=== PATIENT | male | born 1960 | race Caucasian/White ===

== ENCOUNTER 2020-06-15 18:16 | Emergency (ER) | payer BC ==
--- NOTE | 2020-06-15 18:36 | ED.PDOC ---
History of Present Illness - General Chief Complaint: Respiratory Problem Stated Complaint: SOB, cough, headache Time Seen by Provider: 06/15/20 18:17 Source: patient, RN notes reviewed, Vital Signs reviewed - History of Present Illness Comments: pleasant 60 yo male with a pmh of DM comes in with the c/c of shortness of breath. Started with a cough 5 days ago, thought it was allergies. then developed loss of taste and smell, body aches, headache and shortness of breath. Went to clinic today was tested positive for COVID and his saturations were 93% so sent to ER for further evaluation. Denies chest pain. no n/v. no back pain. Timing/Duration: week Cough Quality/Degree: moderate, dry cough Improving Factors: rest Worsening Factors: movement Associated Symptoms: shortness of breath Allergies/Adverse Reactions: Allergies NO KNOWN ALLERGY Allergy (Verified 06/15/20 18:32) Home Medications: Ambulatory Orders Amlodipine Besylate 5 mg PO DAILY 06/15/20 Lisinopril 40 mg PO DAILY 06/15/20 Metformin HCl [Glumetza] 1,000 mg PO BID 06/15/20 Review of Systems - Review of Systems Constitutional: States: malaise. Denies: chills, fever EENTM: Denies: blurred vision, nose pain, throat pain, throat swelling, mouth pain Respiratory: States: cough, short of breath. Denies: stridor, wheezing Cardiology: Denies: chest pain, palpitations Gastrointestinal/Abdominal: Denies: abdominal pain, diarrhea, nausea, vomiting Genitourinary: Denies: frequency, hematuria Musculoskeletal: States: muscle pain. Denies: back pain Skin: Denies: dryness Neurological: States: headache. Denies: numbness, paresthesia, seizure, tremors, weakness Endocrine: Denies: increased urine, unexplained weight gain, unexplained weight loss Hematologic/Lymphatic: Denies: easy bleeding, easy bruising Past Medical History (General) - Patient Medical History Hx Seizures: No Hx Stroke: No Hx Dementia: No Hx Asthma: No Hx of COPD: No Hx Cardiac Disorders: No Hx Congestive Heart Failure: No Hx Pacemaker: No Hx Hypertension: Yes Hx Thyroid Disease: No Hx Diabetes: Yes Hx Gastroesophageal Reflux: No Hx Renal Disease: No Hx Cancer: No Hx of HIV: No Hx Hepatitis B: No Hx Hepatitis C: No Hx MRSA: No Hx Other PMH: Yes - MITZI, fatty liver disease Family Medical History - Family History Mother Family History: Unknown Living Status: Unknown Hx Cardiac Disease: Yes - father with triple bypass, still living (current 89) Physical Exam - Physical Exam General Appearance: Alert, Comfortable, No apparent distress, Well Developed, Well Groomed, Well Hydrated, Well Nourished Eye Exam: bilateral normal ENT Exam: normal ENT inspection, hearing grossly normal Neck: non-tender, full range of motion, supple, normal inspection Respiratory: chest non-tender, lungs clear, normal breath sounds, no respiratory distress, no accessory muscle use Cardiovascular/Chest: normal peripheral pulses, regular rate, rhythm, no edema, no gallop, no JVD, no murmur Gastrointestinal/Abdominal: normal bowel sounds, non tender, soft, no organomegaly, no pulsatile mass Extremity: normal range of motion, non-tender, normal inspection, no pedal edema, no calf tenderness, normal capillary refill Neurologic: cras II-XII nml as tested, no motor/sensory deficits, alert, normal mood/affect, oriented x 3 Skin Exam: normal color, warm/dry Progress - Progress Progress: 06/15/20 19:21 Partial ddx: pneumonia, covid, PE, chf. patient resting comfortably. Saturations 94-95% on RA. Does wear CPAP at night. Discussed elevated liver enzymes, does have a hx of fatty liver disease. Recommend follow up on this. 06/15/20 18:33 Isolation:Airborne ONCE 06/15/20 18:45 Pulse Ox, Continuous Monitoring STAT 06/16/20 18:45 Pulse Ox, Continuous Monitoring STAT 06/17/20 18:45 Pulse Ox, Continuous Monitoring STAT Laboratory Results WBC 7.4 K/mm3 (4.8-10.8) 06/15/20 18:41 RBC 5.78 M/mm3 (4.70-6.10) 06/15/20 18:41 Hgb 16.2 gm/dL (14.0-18.0) 06/15/20 18:41 Hct 46.9 % (42.0-52.0) 06/15/20 18:41 MCV 81.1 fl (80.0-94.0) 06/15/20 18:41 MCH 28.1 pg (27.0-31.0) 06/15/20 18:41 MCHC 34.6 g/dL (33.0-37.0) 06/15/20 18:41 RDW 14.5 % (11.5-14.5) 06/15/20 18:41 Plt Count 294 K/mm3 (130-400) 06/15/20 18:41 MPV 7.5 fl (7.40-10.4) 06/15/20 18:41 Absolute Neuts (auto) 4.90 K/uL (1.8-6.8) 06/15/20 18:41 Absolute Lymphs (auto) 1.50 K/uL (1.0-3.4) 06/15/20 18:41 Absolute Monos (auto) 0.90 K/uL (0.2-0.8) H 06/15/20 18:41 Absolute Eos (auto) 0.00 K/uL (0.0-0.4) 06/15/20 18:41 Absolute Basos (auto) 0.00 K/uL (0.0-0.1) 06/15/20 18:41 Neutrophils % 66.2 % (42.0-78.0) 06/15/20 18:41 Lymphocytes % 20.4 % (20.0-50.0) 06/15/20 18:41 Monocytes % 12.8 % (2.0-9.0) H 06/15/20 18:41 Eosinophils % 0.1 % (1.0-5.0) L 06/15/20 18:41 Basophils % 0.5 % (0.0-2.0) 06/15/20 18:41 PTT (SP) 28.9 SECONDS (21.8-31.6) 06/15/20 18:41 D-Dimer, Quantitative < 131.0 ng/ml (131-400) L 06/15/20 18:41 Sodium 136 mmol/L (135-145) 06/15/20 18:41 Potassium 3.2 mmol/L (3.6-5.0) L 06/15/20 18:41 Chloride 95 mmol/L (101-111) L 06/15/20 18:41 Carbon Dioxide 26 mmol/L (21-31) 06/15/20 18:41 Anion Gap 18.2 (12-18) H 06/15/20 18:41 BUN 14 mg/dL (7-18) 06/15/20 18:41 Creatinine 0.93 mg/dL (0.6-1.3) 06/15/20 18:41 BUN/Creatinine Ratio 15.1 (10-20) 06/15/20 18:41 Random Glucose 102 mg/dL (70-105) 06/15/20 18:41 Serum Osmolality 272.6 mOsm/L (275-295) L 06/15/20 18:41 Calcium 9.5 mg/dL (8.4-10.2) 06/15/20 18:41 Magnesium 2.0 mg/dL (1.8-2.5) 06/15/20 18:41 Total Bilirubin 0.9 mg/dL (0.2-1.0) 06/15/20 18:41 AST 162 IU/L (10-42) H 06/15/20 18:41 ALT 156 IU/L (10-60) H 06/15/20 18:41 Alkaline Phosphatase 69 IU/L (42-121) 06/15/20 18:41 LD Total 171 IU/L (91-180) 06/15/20 18:41 Creatine Kinase 91 IU/L (38-174) 06/15/20 18:41 Troponin I 0.02 ng/mL (0.01-0.05) 06/15/20 18:41 C-Reactive Protein 3.8 mg/dL (0-1.0) H 06/15/20 18:41 B-Natriuretic Peptide 34.1 pg/ml (0-100) 06/15/20 18:41 Serum Total Protein 9.3 gm/dL (6.4-8.2) H 06/15/20 18:41 Albumin 4.9 g/dl (3.2-5.5) 06/15/20 18:41 Globulin 4.4 gm/dL (2.3-3.5) H 06/15/20 18:41 Albumin/Globulin Ratio 1.1 (1.1-1.9) 06/15/20 18:41 06/15/20 19:21 - Results/Orders Results/Orders: The data reviewed when caring for this patient included: nurse notes, prior records, etc. The history and assessments from nurses notes were reviewed and considered, and the patient's home medication list was also reviewed and considered. My assessment and the results of testing completed here in the ED were discussed with the patient. All questions were answered, and they express understanding of my assessment and the plan. They have been instructed to return if their symptoms worsen, and have been asked to follow up with their primary care physician to recheck today's presenting complaint. Strict return precautions given. patient was discharged home in stable condition. Zeenat Crawford DO #[id number] - EKG/XRAY/CT XRAY: chest Departure - Departure Clinical Impression: COVID-19 Time of Disposition: 19:14 Disposition: Discharge to Home or Self Care Departure Forms: ED Discharge - Pt. Copy, Patient Portal Self Enrollment Instructions: Cough, Adult (DC), Shortness of Breath (Dyspnea) (DC) Referrals: Moshe Allred MD [Primary Care Provider] - 1-5 Days Home Medications: Ambulatory Orders Amlodipine Besylate 5 mg PO DAILY 06/15/20 Lisinopril 40 mg PO DAILY 06/15/20 Metformin HCl [Glumetza] 1,000 mg PO BID 06/15/20
[2020-06-15] MEDS ORDERED: DEXAMETHASONE INJ 4 MG/ML VIAL IV ONE (18:37)
[2020-06-15] MEDS ORDERED: ACETAMINOPHEN 500 MG TAB PO ONE (18:54)
[2020-06-15] MEDS ORDERED: POTASSIUM CHLORIDE 20 MEQ TAB PO ONE (19:08)
--- NOTE | 2020-06-15 19:08 | RAD ---
EXAM: Chest,1 View CLINICAL INDICATION: COMPARISON: There is no previous study for comparison. FINDINGS: Cardiomediastinal silhouette within normal limits. No evidence of airspace consolidation or pleural effusions. The pulmonary vasculature is within normal limits. The bony thorax is unremarkable. IMPRESSION: No radiographic evidence for acute cardiopulmonary disease. Electronically signed by: Lloyd Parker MD 06/15/2020 7:06 PM CDT
[2020-06-15 19:36] VITALS: BP 124/76; TEMP 98.1; O2SAT 94
== END 2020-06-15 19:29 | disposition home or self-care (01) ==
LOC: ER 18:16
DX: U07.1 COVID-19 (principal); R06.02 Shortness of breath; I10 Essential (primary) hypertension; Z79.899 Other long term (current) drug therapy
CPT/HCPCS: 36415; 71045; 80053; 82550; 83615; 83735; 83880; 84484; 85025; 85379; 85730; 86140; J1100